=== PATIENT | female | born 1995 | race Caucasian/White ===

== ENCOUNTER 2018-07-03 20:40 | Emergency (ER) | END 2018-07-03 20:50 | disposition left against medical advice (07) | LOC: ER 20:40 | DX: Z53.21 Procedure and treatment not carried out due to patient leaving prior to being seen by health care provider (principal) ==

== ENCOUNTER 2018-07-04 16:53 | Emergency (ER) | payer MEDICAID ==
[2018-07-04 17:26] VITALS: BP 133/74
[2018-07-04] MEDS ORDERED: TETRACAINE HCL 0.5% OPH SOLN 4 ML ONE (18:07)
[2018-07-04] MEDS ORDERED: TETRACAINE HCL 0.5% OPH SOLN 4 ML OS ONE (18:11)
--- NOTE | 2018-07-04 18:13 | ER Document Report ---
HPI - HPI Time Seen by Provider: 07/04/18 18:03 Pain Level: 0 Context: Patient is a 22-year-old female who presents the emergency department with a chief complaint of left eye redness. She has had her symptoms for the past 2 days. She also reports swelling, pain, and redness. Denies any fever. Denies any nasal drainage. Denies any ear pain. She does currently wear glasses. - CONSTITUTIONAL Constitutional: DENIES: Fever, Chills - EENT EENT: REPORTS: Eye problems - Left eye redness, drain. DENIES: Sore Throat, Ear Pain, Nasal Drainage-Clear, Nasal Drainage-Purulent, Congestion - NEURO Neurology: DENIES: Headache - CARDIOVASCULAR Cardiovascular: DENIES: Chest pain - RESPIRATORY Respiratory: DENIES: Coughing - REPRODUCTIVE Reproductive: DENIES: : - MUSCULOSKELETAL Musculoskeletal: DENIES: Extremity pain - DERM Skin Color: Normal Skin Problems: None Past Medical History - General Information source: Patient - Social History Smoking Status: Never Smoker Frequency of alcohol use: None Drug Abuse: None Family History: Reviewed & Not Pertinent Vertical Provider Document - CONSTITUTIONAL Agree With Documented VS: Yes Exam Limitations: No Limitations General Appearance: No Apparent Distress - INFECTION CONTROL TRAVEL OUTSIDE OF THE [place] IN LAST 30 DAYS: No - HEENT HEENT: Atraumatic, Conjuctival Injection - Left eye with yellow discharge, Normocephalic, PERRLA - NECK Neck: Normal Inspection - RESPIRATORY Respiratory: Breath Sounds Normal, No Respiratory Distress - CARDIOVASCULAR Cardiovascular: Regular Rate, Regular Rhythm Pulses: Normal: Radial - MUSCULOSKELETAL/EXTREMETIES Musculoskeletal/Extremeties: FROM - NEURO Level of Consciousness: Awake, Alert, Appropriate Motor/Sensory: No Motor Deficit, No Sensory Deficit - DERM Integumentary: Warm, Dry, No Rash Course - Re-evaluation Re-evalutation: 07/04/18 18:22 Peña lamp exam was done and there is no corneal abrasion noted. Negative Terri sign. I do not suspect a globe rupture. I do not suspect acute angle glaucoma. She did have a little bit of corneal irritation, therefore I will give her ocular eyedrops to help with the pain. She will also be started on polymyxin eyedrops to help with her conjunctivitis. I have also advised her that if her eye is not better in the next week, to follow-up with ophthalmology. Verbal discharge instructions were given to the patient. They verbalized understanding. They are stable for discharge. - Vital Signs Vital signs: Temp Pulse Resp BP Pulse Ox 98.6 F 106 H 16 133/74 H 93 07/04/18 17:24 07/04/18 17:24 07/04/18 17:24 07/04/18 17:24 07/04/18 17:24 Discharge - Discharge Clinical Impression: Conjunctivitis Qualifiers: Conjunctivitis type: unspecified Laterality: left Qualified Code(s): H10.9 - Unspecified conjunctivitis Condition: Stable Disposition: HOME, SELF-CARE Instructions: Conjunctivitis ([facility]), Eyedrop Use ([facility]) Additional Instructions: You are seen in the emergency department for eye pain. You have an infection in your eye. Please place 1 drop to your eye 4 times a day for 7 days. You have also been prescribed Acular eyedrops. Use the eyedrops as directed. Follow-up with ophthalmology in 1 week if your symptoms are not better. Please return immediately if you begin to have worsening discomfort in the eyes, you notice spreading redness around the eye, you have changes in vision, or you have any other symptoms that are worrisome to you. Prescriptions: Ketorolac Tromethamine [Acular] 1 drop OS TIDP PRN #5 ml PRN Reason: Referrals: BEVERLY OHARA DO [ACTIVE STAFF] - Follow up as needed
[2018-07-04] MEDS ORDERED: POLYMYXIN B SULFATE/TMP OPH SOLN (10 ML/ER DISP) OS PRN (18:29)
== END 2018-07-04 18:53 | disposition home or self-care (01) ==
LOC: ER 16:53
DX: H10.9 Unspecified conjunctivitis (principal)
CPT/HCPCS: 99282; J3490

== ENCOUNTER 2018-07-14 17:42 | Emergency (ER) | payer MEDICAID ==
--- NOTE | 2018-07-14 19:18 | ER Document Report ---
ED Medical Screen (RME) - General Chief Complaint: Vag Bleeding, +preg <12wks Stated Complaint: ABDOMINAL CRAMPING Time Seen by Provider: 07/14/18 19:16 Primary Care Provider: SHILPA HENNESSY MD [Primary Care Provider] - Follow up as needed Notes: Patient is a 22-year-old female G4, P3 currently 9 weeks presents to the emergency department for generalized vaginal bleeding for the last 3 hours. Patient also complaining of some generalized lower abdominal cramping. GENERAL: Alert, interacts well. No acute distress. ABDOMEN: Soft, suprapubic tenderness noted. Non-distended. Bowel sounds present in all 4 quadrants. I have greeted and performed a rapid initial assessment of this patient. A comprehensive ED assessment and evaluation of the patient, analysis of test results and completion of the medical decision making process will be conducted by additional ED providers. This medical record was dictated with voice recognizing software. There may be grammatical, syntax errors that are unintended. TRAVEL OUTSIDE OF THE [place] IN LAST 30 DAYS: No - Related Data Allergies/Adverse Reactions: No Known Allergies Allergy (Verified 07/14/18 17:44) Past Medical History Renal/ Medical History: Denies: Hx Peritoneal Dialysis Physical Exam - Vital signs Vitals: Temp Pulse Resp BP Pulse Ox 98.8 F 79 18 150/77 H 100 07/14/18 17:48 07/14/18 17:48 07/14/18 17:48 07/14/18 17:48 07/14/18 17:48 Course - Vital Signs Vital signs: Temp Pulse Resp BP Pulse Ox 98.8 F 79 18 150/77 H 100 07/14/18 17:48 07/14/18 17:48 07/14/18 17:48 07/14/18 17:48 07/14/18 17:48 Doctor's Discharge - Discharge Referrals: SHILPA HENNESSY MD [Primary Care Provider] - Follow up as needed
[2018-07-14 20:12] LABS: APPEARANCE,URINE CLOUDY; BILIRUBIN,URINE NEGATIVE (NEGATIVE); COLOR,URINE STRAW; GLUCOSE, URINE NEGATIVE (NEGATIVE); KETONES,URINE NEGATIVE (NEGATIVE); LEUKOCYTE ESTERASE,URINE LARGE (NEGATIVE); NITRITE,URINE NEGATIVE (NEGATIVE); PROTEIN,URINE NEGATIVE (NEGATIVE); URINE SPECIFIC GRAVITY 1.004; UROBILINOGEN,URINE NEGATIVE mg/dL (<2.0)
--- NOTE | 2018-07-14 20:19 | ER Document Report ---
Addendum entered and electronically signed by VERONICA HERNANDEZ PA-C 07/14/18 23:35: Discharge - Discharge Clinical Impression: Threatened miscarriage UTI (urinary tract infection) Qualifiers: Urinary tract infection type: site unspecified Hematuria presence: without hematuria Qualified Code(s): N39.0 - Urinary tract infection, site not specified Subchorionic hemorrhage Qualifiers: Fetus number: single or unspecified fetus Trimester: first trimester Qualified Code(s): O41.8X10 - Other specified disorders of amniotic fluid and membranes, first trimester, not applicable or unspecified Condition: Good Disposition: HOME, SELF-CARE Instructions: Bleeding During Early ([facility]), Cephalexin ([facility]), Ob-Rubber Down Doctors, Threatened Miscarriage ([facility]) Additional Instructions: Keep your appointment tomorrow with the health department. You will need to continue monitoring your blood levels and ultrasounds. Prescriptions: Cephalexin Monohydrate [Keflex 500 mg Capsule] 500 mg PO Q6H 7 Days #28 capsule [facility] - Follow up tomorrow Original Note: ED General - General Chief Complaint: Vag Bleeding, +preg <12wks Stated Complaint: ABDOMINAL CRAMPING Time Seen by Provider: 07/14/18 19:16 Primary Care Provider: SHILPA HENNESSY MD [Primary Care Provider] - Follow up as needed Mode of Arrival: Ambulatory Information source: Patient TRAVEL OUTSIDE OF THE [place] IN LAST 30 DAYS: No - HPI Patient complains to provider of: Early , vaginal bleeding and pelvic cramping Onset: Other - Started today Onset/Duration: Sudden Quality of pain: Cramping Severity: Moderate Pain Level: 3 Associated symptoms: None Exacerbated by: Denies Relieved by: Denies Similar symptoms previously: No Recently seen / treated by doctor: No Notes: 22-year-old female 4 para 3 at 9 weeks gestation with low pelvic cramping and vaginal bleeding. No nausea vomiting or diarrhea. - Related Data Allergies/Adverse Reactions: No Known Allergies Allergy (Verified 07/14/18 17:44) Past Medical History - General Information source: Patient - Social History Smoking Status: Smoker,Current Status Unk Family History: Reviewed & Not Pertinent Renal/ Medical History: Denies: Hx Peritoneal Dialysis Review of Systems - Review of Systems Notes: Constitutional: No fevers. No chills. EENT: No eye redness. No eye pain. No ear pain. No sore throat. Cardiovascular: No chest pain. No palpitations. Respiratory: No cough. No shortness of breath. No respiratory distress. Gastrointestinal: No abdominal pain. No nausea, vomiting, or diarrhea. Genitourinary: Positive for vaginal bleeding, pelvic cramping Musculoskeletal: Atraumatic. No swelling. No deformities. Skin: No rash or lesions. Lymphatic: No swollen lymph nodes. Neurologic: No headache. No syncope. Psychiatric: No suicidal or homicidal ideation. Physical Exam - Vital signs Vitals: Temp Pulse Resp BP Pulse Ox 98.8 F 79 18 150/77 H 100 07/14/18 17:48 07/14/18 17:48 07/14/18 17:48 07/14/18 17:48 07/14/18 17:48 - Notes Notes: General: Well-developed, well-nourished. In no acute distress. Non-toxic appearing. Cardiac: Well-perfused. Regular rate and rhythm. No murmurs, rubs, or gallops. Pulmonary: No respiratory distress. No cyanosis. Bilateral lung fiels are clear to auscultation. Abdominal: Non-distended. Non-rigid. Bowels sounds are present in all four quadrants. No guarding or rebound. HEENT: Head is atraumatic. Conjunctivae not reddened. No tearing. PERRL. EOMI. Orbits atraumatic. No periorbital swelling or erythema. Oropharynx is without erythema, swelling, or exudates. Neck: Supple. No adenopathy. No meningismus. Dermatologic: Warm with good turgor. No rash. Atraumatic. Chest: Atraumatic. No chest wall tenderness to palpation. Musculoskeletal: Moves all extremities well. No range of motion deficits. no muscular or joint tenderness. No paraspinal muscle tenderness. no midline spinal tenderness or step-off. Genitourinary: Examination deferred Neurologic: No gross neurologic deficits. Psychiatric: Normal mood. Course - Re-evaluation Re-evalutation: 07/14/18 20:19 Appropriate work-up ordered in [facility] 07/14/18 23:10 Evidence of intrauterine . Patient has a follow-up tomorrow at the health department. I will encourage her to keep that appointment and follow-up accordingly. There is some possibility of a subchorionic hemorrhage. I notified the patient at this possibility and she understands what it is and what to expect. Also looks like possible UTI. We will go ahead and give her Keflex tonight and start her on some Keflex tomorrow. - Vital Signs Vital signs: Temp Pulse Resp BP Pulse Ox 98.8 F 79 18 150/77 H 100 07/14/18 17:48 07/14/18 17:48 07/14/18 17:48 07/14/18 17:48 07/14/18 17:48 - Laboratory Result Diagrams: 07/14/18 20:07 07/14/18 20:07 Laboratory results interpreted by me: 07/14/18 07/14/18 19:43 20:07 Beta HCG, Quant 42273.00 H Urine Blood LARGE H Ur Leukocyte Esterase LARGE H Discharge - Discharge Clinical Impression: Threatened miscarriage UTI (urinary tract infection) Qualifiers: Urinary tract infection type: site unspecified Hematuria presence: without hematuria Qualified Code(s): N39.0 - Urinary tract infection, site not specified Subchorionic hemorrhage Qualifiers: Fetus number: single or unspecified fetus Trimester: first trimester Qualified Code(s): O41.8X10 - Other specified disorders of amniotic fluid and membranes, first trimester, not applicable or unspecified; O46.8X1 - Other antepartum hemorrhage, first trimester Condition: Good Disposition: HOME, SELF-CARE Instructions: Bleeding During Early ([facility]), Threatened Miscarriage ([facility]), Cephalexin ([facility]), Ob-Rubber Down Doctors Additional Instructions: Keep your appointment tomorrow with the health department. You will need to c ontinue monitoring your blood levels and ultrasounds. [facility] - Follow up tomorrow
[2018-07-14 20:25] LABS: ABSOLUTE MONOCYTES (AUTO) 0.6 10^3/uL (0.1-1.4); ABSOLUTE NEUT (AUTO) 7.8 10^3/uL (1.7-8.2); BASOPHILS % (AUTO) 0.1 % (0-2); EOSINOPHILS % (AUTO) 0.2 % (0-6); HEMATOCRIT 41.2 % (36.0-47.0); HEMOGLOBIN 14.6 g/dL (12.0-15.5); LYMPHOCYTES % (AUTO) 19.5 % (13-45); MEAN CORPUSCULAR HEMOGLOBIN 29.9 pg (27.0-33.4); MEAN CORPUSCULAR HGB CONC 35.4 g/dL (32.0-36.0); MEAN CORPUSCULAR VOLUME 85 fl (80-97); MONOCYTES % (AUTO) 5.7 % (3-13); PLATELET COUNT 298 10^3/uL (150-450); RED BLOOD COUNT 4.88 10^6/uL (3.72-5.28); SEGMENTED NEUTROPHILS % (AUTO) 74.5 % (42-78); TOTAL CELLS COUNTED % (AUTO) 100 %; WHITE BLOOD COUNT 10.5 10^3/uL (4.0-10.5)
[2018-07-14 20:44] LABS: ALANINE AMINOTRANSFERASE 30 U/L (9-52); ALBUMIN 4.5 g/dL (3.5-5.0); ALKALINE PHOSPHATASE 97 U/L (38-126); ANION GAP 11 (5-19); ASPARTATE AMINO TRANSFERASE 27 U/L (14-36); BILIRUBIN,DIRECT 0.2 mg/dL (0.0-0.4); BILIRUBIN,TOTAL 0.2 mg/dL (0.2-1.3); BLOOD UREA NITROGEN 9 mg/dL (7-20); CARBON DIOXIDE 23 mmol/L (22-30); CHLORIDE 107 mmol/L (98-107); GLUCOSE 87 mg/dL (75-110); POTASSIUM 4.3 mmol/L (3.6-5.0); SODIUM 141.3 mmol/L (137-145); TOTAL PROTEIN 7.7 g/dL (6.3-8.2)
--- NOTE | 2018-07-14 22:54 | RADIOLOGY REPORT (SQ) ---
EXAM DESCRIPTION: US TRANSVAGINAL COMPLETED DATE/TME: 07/14/2018 19:16 CLINICAL HISTORY: 22 years, Female, +preg vag bleeding COMPARISON: Prior study from 04/20/2015 TECHNIQUE: 2-D grayscale images of the pelvis were obtained. Doppler was utilized. LIMITATIONS: None. FINDINGS: Uterus measures 9.4 x 6.4 x 6.9 cm in size. It is retroverted. Cervix is closed, measuring 3.1 cm in length. An intrauterine gestational sac is identified with measurements as follows: Mean sac diameter is 1.6 cm for an estimated gestational age of six weeks and three days. However, a pole was not identified. There is a tiny rounded echogenic structure located within the gestational sac which is suspicious for a small yolk sac. However, a similar finding is noted elsewhere within the gestational sac. Additionally, the gestational sac appears somewhat irregular in configuration. There is an irregular area of hypoechogenicity located about the periphery of the gestational sac measuring 0.6 x 0.9 x 2.0 cm in size, suspicious for subchorionic hemorrhage. Right ovary measures 3.8 x 2.4 x 2.1 cm in size. It demonstrates a hypoechoic lesion measuring 2.1 x 1.9 x 1.8 cm in size with peripheral Doppler flow, likely indicating a corpus luteal cyst. Otherwise, the right ovary demonstrates normal low resistance arterial waveforms as well as venous flow. Left ovary measures 3.0 x 2.1 x 1.6 cm in size. It contains a 1.1 x 1.2 x 0.9 cm echogenic lesion. Otherwise, the left ovary demonstrates normal low resistance arterial waveforms. IMPRESSION: Irregularly shaped gestational sac with suspected adjacent subchorionic hemorrhage. No pole is identified. However, there are possibly two yolk sacs. Suspect corpus luteal cyst about the right ovary. Hyperechoic lesion located within the left ovary, indeterminate though potentially indicative of a fatty lesion such as a dermoid cyst. Consider confirmation with contrast-enhanced pelvic MR once the patient is able. copyright 2010 [employer]- All Rights Reserved
[2018-07-14] MEDS ORDERED: CEPHALEXIN 500 MG CAPSULE PO ONE (23:12)
[2018-07-14 23:14] VITALS: BP 132/80
== END 2018-07-14 22:45 | disposition home or self-care (01) ==
LOC: ER 17:42
DX: O20.0 Threatened abortion (principal); O23.41 Unspecified infection of urinary tract in pregnancy, first trimester; O26.891 Other specified pregnancy related conditions, first trimester; R10.2 Pelvic and perineal pain; Z3A.09 9 weeks gestation of pregnancy
CPT/HCPCS: 36415; 76817; 80053; 81001; 84702; 85025; 86900; 86901; 93976; 99284